=== PATIENT | female | born 1985 | race Caucasian/White ===

== ENCOUNTER 2017-03-18 12:54 | Emergency (ER) | payer BC ==
[2017-03-18 13:08] VITALS: BP 144/73
--- OUTSIDE RECORDS SUMMARY | 2017-03-18 13:21 | XMS REPORT | Continuity of Care Document ---
:1985 Demographics Phone Unavailable Preferred Language Unknown Marital Status Unknown Judaism Affiliation Unknown Race Unknown Ethnic Group Unknown Author Organization [facility] ([facility]) Address [place] [address] Phone [phone] Care Team Providers Name Role Phone Unavailable Primary Care Provider Unavailable Source Comments This disclosure is being made pursuant to the Care Everywhere program, applicable federal and state laws, and may not contain all informaitonavailable regarding this patient.[facility] ([facility]) Active Allergies and Adverse Reactions Not on File Current Medications Not on file Active Problems Not on file Social History Tobacco Use Types Packs/Day Years Used Date Never Assessed Plan of Care Health Maintenance Due Date Last Done Comments Hepatitis B Vaccine (1 of 3 - Primary Series) 1985 Tdap Vaccine 1997 Lipid Disorder Screening 2004 MMR Vaccine 2004 Td Vaccine 2004 Varicella Vaccine (1 of 2 - Adult - No Evidence of 2004 Immunity) Influenza Vaccine: Seasonal (#1) 05/29/2016 Results from Last 3 Months Not on file
[2017-03-18] MEDS ORDERED: METHYLPREDNISOLONE SOD SUCC/PF 40 MG/ML VIAL IM ONE (13:27)
[2017-03-18] MEDS ORDERED: KETOROLAC TROMETHAMINE 60 MG/2 ML VIAL IM ONE ×2 (13:27→13:32)
[2017-03-18] MEDS ORDERED: METHYLPREDNISOLONE SOD SUCC/PF 40 MG/ML VIAL ONE (13:32)
--- NOTE | 2017-03-18 14:23 | ERNOTE ---
Back Pain ER HPI Date of Service: 03/18/17 Presenting Symptoms: other - low back pain with numbness and tingling to bilateral legs Time Seen by Provider: 03/18/17 13:14 Source: patient Exam Limitations: no limitations Immunizations: IMMUNIZATION HX Immunizations Up to Date Yes History of Influenza Vaccine No Allergies/Adverse Reactions: Allergies No Known Allergies Allergy (Verified 03/18/17 13:08) Home Medications: HOME MEDICATIONS Naproxen [Naprosyn] 500 mg PO BID #14 tablet 03/18/17 [Last Taken Unknown] - Pain Score Pain Score #1 Pain Score: 8 Pain Score #2 Pain Score: 2 Narrative: Patient is a 31 year old female who ambulated into ED with complaints of low back pain and numbness and tingling to bilateral legs. Patient states low back pain began 2 years ago and she sought medical care in which she was diagnosed with DJD. Patient denied injury or trauma at that time. States that she sees a chiropractor when she begins to feel pain and that works for relief. States that yesterday morning she began to have bilateral leg cramping and then began to get worse during the night. States this morning she had progressively worsening pain--pain originates L4-L5 area and radiates down bilateral buttocks and lateral areas of outer thighs. States that when she has these flares up she has difficulty controlling her bladder. Has attempted cold and heat therapy and Ibuprofen without relief Date (Duration): 03/17/17 Timing: Reports: constant, getting worse Quality/Severity: Reports: moderate Location of pain: Reports: lower back, radiating to rt thigh/leg, radiating to lf thigh/leg Activities at Onset: Reports: none Recent Injury?: Reports: no Possible Precipitating Factor: Reports: none Modifying Factors - (Improves): Reports: nothing Modifying Factors - (Worsens): Reports: movement to right, movement to left, movement flexion, cough/deep breaths Associated Symptoms: Reports: difficulty walking, numbess/weakness in legs, other - difficulty controlling bladder Prior Treament: Reports: similar symptoms before Review of Systems - Review of Systems Constitutional: Present: no symptoms reported. Absent: recent illness, fever, chills EYE: Present: no symptoms reported ENT: Present: no symptoms reported Respiratory: Present: no symptoms reported. Absent: shortness of breath, cough Cardiology: Present: no symptoms reported Gastrointestinal/Abdominal: Present: no symptoms reported. Absent: nausea, vomiting, diarrhea Genitourinary: Present: other - difficulty with bladder control Musculoskeletal: Present: back pain - L4-L5 area Skin: Present: no symptoms reported Neurological: Present: numbness, tingling Endocrine: Present: no symptoms reported Hematologic/Lymphatic: Present: no symptoms reported Psych: Present: no symptoms reported - Patient's Past Medical History Patient History - Medical: Anxiety, Depression, Obesity Patient History - Cardiac/Respiratory: Hypertension Patient History - Cancer: No Hx of Cancer Patient History - Surgical Procedures: No surgical history LMP (females 10-50): now - Social History Living Situations: home Psych History: Hx of Anxiety, Hx of Depression Smoking Status: Never smoker Do you dip or chew tobacco: No Alcohol Use: rarely Drug Use: none - Immunizations Immunizations Up to Date: Yes History of Influenza Vaccine: No Physical Exam - Physical Exam General Appearance: Present: wd/wn, alert, no apparent distress, obese, cheerful Eye Exam: Normal inspection: bilateral, PERRL: bilateral Ears, Nose, Throat: Absent: nasal congestion, sinus pain/drainage, pharyngeal erythema, pharyngeal swelling, tonsillar exudate, tonsillar swelling, dry mucous membranes Neck: Present: normal inspection, nontender, supple, full range of motion. Absent: lymphadenopathy (R), lymphadenopathy (L) Respiratory: Present: no respiratory distress, normal breath sounds, no accessory muscle use, chest nontender, lungs clear. Absent: chest tenderness, accessory muscle use Cardiovascular/Chest: Present: regular rate, rhythm, no murmur, normal peripheral pulses Peripheral Pulses: N=norm/S=strong/W=weak/B=bound/A=absent: Radial (R): Normal, Radial (L): Normal Gastrointestinal/Abdominal: Present: normal bowel sounds, nontender, nondistended, soft, no organomegaly Rectal Exam: Present: deferred Back Exam: Present: normal inspection, normal range of motion, vertebral tenderness, decreased range of motion. Absent: no CVA tenderness, CVA tenderness (R), CVA tenderness (L) Extremity Exam: Present: normal inspection, non-tender, normal range of motion, no edema Neurological Exam: Present: alert, oriented, normal mood/affect, no motor/ sensory deficits Skin Exam: Present: normal color, warm/dry Lymphatic Exam: Present: no adenopathy ED Progress - Vital Signs Patient's Vital Signs:: I have reviewed the patient's vital signs. Vital Signs: Vital Signs 03/18/17 13:02 Temperature 36.1 C L Pulse Rate 81 Respiratory 16 Rate Blood Pressure 144/73 O2 Sat by Pulse 97 Oximetry - Progress/Reassessment Chief Complaint: Back Pain Progress Note-Subjective: 03/18/17 14:22 Patient states she has felt relief from injections. States pain is lessening Departure Clinical Impression: Back pain at L4-L5 level, Sciatic leg pain Clinical Impression: (Ruled Out): Sciatic nerve pain - Departure Disposition: Home self-care Condition: Good Instructions: Back Pain, Adult, Sciatica, [id number]-pf-Vsub Additional Instructions: Rest as much as possible. Make chiropractor appointment as soon as possible since that help with pain relief. Take medications as directed with food. Referrals: Afsaneh Costello, ASSOCIATE PRO[employer] MANAGER [Primary Care Provider] - Prescriptions: Naproxen [Naprosyn] 500 mg PO BID #14 tablet
== END 2017-03-18 14:10 | disposition home or self-care (01) ==
LOC: ER 12:54
DX: M54.42 Lumbago with sciatica, left side (principal); M54.41 Lumbago with sciatica, right side

== ENCOUNTER 2018-05-24 15:42 | Inpatient (IN) ==
[2018-05-25] MEDS ORDERED: ONDANSETRON HCL/PF 2 MG/ML VIAL IV PRN (12:10)
[2018-05-25] MEDS ORDERED: NALBUPHINE HCL 10 MG/ML AMPUL IV PRN (12:10)
[2018-05-25] MEDS ORDERED: PROMETHAZINE HCL 12.5 MG in DEXTROSE 5 % IN WATER 50 ML IV PRN ×2 (12:10)
[2018-05-25] MEDS ORDERED: OXYTOCIN/DEXTROSE 5%-WATER 30 UNITS/500 ML BAG IV ONE (12:10)
[2018-05-25] MEDS ORDERED: PENICILLIN G POTASSIUM 5 MILLIONUNT in DEXTROSE 5 % IN WATER 100 ML IV ONE ×2 (14:25)
[2018-05-25] MEDS: RINGER'S SOLUTION,LACTATED 1,000 ML IV PRN (14:34)
[2018-05-25] MEDS: MISOPROSTOL 100 MCG TABLET VG SCH ×2 (14:35→18:44)
[2018-05-25] MEDS: PENICILLIN G POTASSIUM 2.5 MILLIONUNT in DEXTROSE 5 % IN WATER 100 ML IV SCH ×4 (18:40→22:29)
[2018-05-26] MEDS: MISOPROSTOL 100 MCG TABLET VG SCH (00:48)
[2018-05-26] MEDS: PENICILLIN G POTASSIUM 2.5 MILLIONUNT in DEXTROSE 5 % IN WATER 100 ML IV SCH ×4 (02:33→07:19)
[2018-05-26] MEDS: RINGER'S SOLUTION,LACTATED 1,000 ML IV PRN ×2 (03:53→07:43)
[2018-05-26] MEDS ORDERED: ONDANSETRON HCL/PF 2 MG/ML VIAL IV PRN ×3 (06:12→11:27)
[2018-05-26] MEDS ORDERED: BUPIVACAINE HCL/0.9 % NACL/PF 250 ML EP PRN (06:12)
[2018-05-26] MEDS ORDERED: NALOXONE HCL 1 MG/1 ML SYRG IV PRN ×2 (06:12→11:27)
[2018-05-26] MEDS ORDERED: fentaNYL CITRATE/PF 50 MCG/ML AMPUL IT SCH (06:15)
--- NOTE | 2018-05-26 06:49 | ANES ---
Anesthesia Pre Procedure Eval Vitals/Labs: Last Vital Signs Temp 36.7 C 05/26/18 06:19 Pulse 75 05/26/18 06:19 Resp 18 05/26/18 06:19 BP 132/78 05/26/18 06:19 Pulse Ox 98 05/26/18 06:19 HOME MEDICATIONS vitamin,calcium,vsrrqklb-zcud-thutb acid tablet 1 tab PO DAILY [Last Taken Unknown] ranitidine 150 mg tablet 150 mg PO 04/28/18 [Last Taken Unknown] breast pump See Dose Instructions .ROUTE .MEDSUPPLY #1 ea 04/29/18 [Last Taken Unknown] Insulin NPH Human Recom [Novolin N] 34 units SC [facility] 05/25/18 [Last Taken Unknown ] Insulin NPH Human Recom [Novolin N] 48 units SC 05/25/18 [Last Taken Unknown] Insulin Regular, Human [Novolin R] 6 units SC [facility] 05/25/18 [Last Taken 05/25/18 08:00] Insulin Regular, Human [Novolin R] 8 units SC 05/25/18 [Last Taken Unknown] Allergies/Adverse Reactions: Allergies Allergy/AdvReac Type Severity Reaction Status Date / Time No Known Allergies Allergy Verified 05/23/18 14:56 - Planned Procedure Planned Procedure: MEDICAL INDUCTION FOR GESTATIONAL DIABETES Medication List Reviewed:: Yes Allergies Verified: Yes Medical History (Last Reviewed 05/26/18 @ 06:26 by Alf Flood CRNA) Diabetes mellitus type II, controlled (Acute) BMI 40.0-44.9, adult (Acute) BMI 50.0-59.9, adult Gestational diabetes Morbid Obesity BMI>25 Stress incontinence in female Urge incontinence Urinary urgency Anemia Anxiety Asthma Small bowel problem Surgical History (Last Reviewed 05/26/18 @ 06:27 by Alf Flood CRNA) History of adenoidectomy History of nasal surgery History of tonsillectomy Family History (Last Reviewed 05/26/18 @ 06:27 by Alf Flood CRNA) Grandmother Hypothyroidism Hypercholesterolemia Mother Diabetes Hypertension Hypothyroidism - Family Anesthesia History Family History:: no untoward family reactions to anesthesia, no familial bleeding tendencies, no family history of clotting disorders, no family history of premature - Airway/Neck/Teeth Within Normal Limits:: Yes Teeth Condition: Intact Mallampatti Score: 2 Thyromental (T-M) distance: > 6 cm Mandibulo Hyoid distance: > 3 cm - Respiratory Respiratory: chest non-tender, lungs clear, normal breath sounds Smoking Status: Never smoker Sleep Apnea currently treated: No Sleep Apnea by current assessment: No - Cardiovascular Tolerates Activity: Fair - Anesthesia Assessment and Plan ASA Class: PS, II, E Anesthesia Type Plan: Epidural Planned difficult intubation/equipment available: No
--- NOTE | 2018-05-26 06:56 | ANES ---
Anesthesia Procedure Note Procedure Note: ANESTHESIA PROCEDURE NOTE Date of Procedure: 05/26/2018 Time of procedure: 6:30 AM. Performed by: KISHORE Joseph CRNA, MSN Inspector Type: Trinidad Burton RN. Preprocedure diagnosis: Active labor, labor pain. Post procedure diagnosis: Same. Procedure:Epidural for labor analgesia L3 4. Indications: Labor pain. Findings: See below. Details of the procedure: The patient was placed on the side of the bed in sitting positionand prepped with DuraPrep then draped in a sterile fashion. Lidocaine 1% was infiltrated to the skin and subcutaneous tissues at the level of the L34 interspace. An 18-gauge Touhy needle was used to approach the epidural space with loss of resistance technique. Once loss of resistance was achieved a 27-gauge spinal needle was passed through the epidural needle and CSF was contacted. After CSF returned, 20 mcg of fentanyl was injected in the spinal needle was removed the epidural catheter was then threaded approximately 4 cm in the epidural needle was removed. The catheter was taped in place and after careful aspiration 3 mL of 1.5% lidocaine with 1-200,000 epinephrine was injected without change in maternal heart rate or sensorium. . EBL: Minimal. Fluids: N/A. Specimen: N/A. Post procedure condition: The patient tolerated the procedure well with. Good Relief. No complications were noted. Thank you for this consultation. Alf Flood CRNA, ARNP, MSN
--- NOTE | 2018-05-26 07:16 | ANES ---
Post Anesthesia Assessment - Vital Signs Vitals: Last Vital Signs Temp 36.7 C 05/26/18 06:19 Pulse 75 05/26/18 06:19 Resp 18 05/26/18 06:19 BP 132/78 05/26/18 06:19 Pulse Ox 98 05/26/18 06:19 Airway Patency: Normal - Mental Status Level Of Consciousness: Awake, Alert, Appropriate - Pain Level Pain Score: 0 - N/V Assessment Nausea/Vomiting Presence: None Dehydration:: No
--- NOTE | 2018-05-26 09:59 | PN ---
Progess Note - Interim Date: 05/26/18 Time: 09:56 Narrative: 05/26/18 09:56 IUPC placed. VE 4cm and I felt buttocks. Bedside ultrasound performed which was consistent with breech presentation. The head was visualized via ultrasound in the LUQ. Therefore, it was explained to the patient and her that delivery via was recommended due to breech presentation. All risks, benefits, and alternatives of the procedure were explained to the patient and she consented to the procedure.
--- NOTE | 2018-05-26 10:11 | ANES ---
Anesthesia Pre Procedure Eval Vitals/Labs: Last Vital Signs Temp 36.7 C 05/26/18 06:19 Pulse 75 05/26/18 06:19 Resp 18 05/26/18 06:19 BP 132/78 05/26/18 06:19 Pulse Ox 98 05/26/18 06:19 HOME MEDICATIONS vitamin,calcium,erduxxtu-atrc-miufx acid tablet 1 tab PO DAILY [Last Taken Unknown] ranitidine 150 mg tablet 150 mg PO 04/28/18 [Last Taken Unknown] breast pump See Dose Instructions .ROUTE .MEDSUPPLY #1 ea 04/29/18 [Last Taken Unknown] Insulin NPH Human Recom [Novolin N] 34 units SC [facility] 05/25/18 [Last Taken Unknown ] Insulin NPH Human Recom [Novolin N] 48 units SC 05/25/18 [Last Taken Unknown] Insulin Regular, Human [Novolin R] 6 units SC [facility] 05/25/18 [Last Taken 05/25/18 08:00] Insulin Regular, Human [Novolin R] 8 units SC 05/25/18 [Last Taken Unknown] Allergies/Adverse Reactions: Allergies Allergy/AdvReac Type Severity Reaction Status Date / Time No Known Allergies Allergy Verified 05/23/18 14:56 - Planned Procedure Planned Procedure: MEDICAL INDUCTION FOR GESTATIONAL DIABETES Medication List Reviewed:: Yes Allergies Verified: Yes Medical History (Last Reviewed 05/26/18 @ 10:09 by Alf Flood CRNA) Diabetes mellitus type II, controlled (Acute) BMI 40.0-44.9, adult (Acute) BMI 50.0-59.9, adult Gestational diabetes Morbid Obesity BMI>25 Stress incontinence in female Urge incontinence Urinary urgency Anemia Anxiety Asthma Small bowel problem Surgical History (Last Reviewed 05/26/18 @ 10:09 by Alf Flood CRNA) History of adenoidectomy History of nasal surgery History of tonsillectomy Family History (Last Reviewed 05/26/18 @ 10:09 by Alf Flood CRNA) Grandmother Hypothyroidism Hypercholesterolemia Mother Diabetes Hypertension Hypothyroidism - Family Anesthesia History Family History:: no untoward family reactions to anesthesia, no familial bleeding tendencies, no family history of clotting disorders, no family history of premature - Airway/Neck/Teeth Within Normal Limits:: Yes Teeth Condition: Intact Neck Exam: non-tender, full range of motion Mallampatti Score: 2 Thyromental (T-M) distance: > 6 cm Mandibulo Hyoid distance: > 3 cm - Respiratory Respiratory: chest non-tender, lungs clear, normal breath sounds Smoking Status: Never smoker Sleep Apnea currently treated: No Sleep Apnea by current assessment: No - Cardiovascular Patient History - Cardiac/Respiratory: No pertinent hx Tolerates Activity: Fair Heart Sounds: S1 & S2, Regular - Anesthesia Assessment and Plan ASA Class: PS, II, E Anesthesia Type Plan: Spinal, Epidural - Duramorph for post op pain relief
[2018-05-26] MEDS ORDERED: ceFAZolin SODIUM 3 GM in DEXTROSE 5 % IN WATER 100 ML IV PRN ×2 (10:15)
[2018-05-26] MEDS ORDERED: OXYTOCIN 20 UNITS in RINGER'S SOLUTION,LACTATED 1,000 ML IV ONE ×2 (10:15→11:06)
[2018-05-26] MEDS ORDERED: SENNOSIDES 8.6 MG TABLET PO PRN (11:06)
[2018-05-26] MEDS ORDERED: PROMETHAZINE HCL 12.5 MG in DEXTROSE 5 % IN WATER 50 ML IV PRN ×2 (11:06)
[2018-05-26] MEDS ORDERED: RINGER'S SOLUTION,LACTATED 1,000 ML IV ONE (11:06)
[2018-05-26] MEDS ORDERED: diphenhydrAMINE HCL 25 MG CAPSULE PO PRN (11:06)
[2018-05-26] MEDS ORDERED: SIMETHICONE 80 MG TAB.CHEW PO PRN (11:06)
[2018-05-26] MEDS ORDERED: oxyCODONE HCL/ACETAMINOPHEN 1 TAB TABLET PO PRN (11:06)
[2018-05-26] MEDS ORDERED: BISACODYL 10 MG SUPP.RECT RC PRN (11:06)
--- NOTE | 2018-05-26 11:14 | OR ---
Operative Report - Dictated Report Narrative: Pre-op diagnosis: breech presentation, meconium stained amniotic fluid Post-op diagnosis: complete breech presentation, meconium stained amniotic fluid Indications for the procedure: The patient is a 32 yo who presented to labor and delivery for an induction of labor due to pregestational diabetes. She received misoprostol for ripening. She then spontaneously ruptured and pitocin was started. I placed and IUPC and her vaginal exam findings were suspicious for breech presentation.
--- NOTE | 2018-05-26 11:21 | ANES ---
Post Anesthesia Discharge - Transfer of Care Transfer of Care handoff given to nurse: Yes - Discharge from PACU Discharge from PACU when meets criteria: Yes - Comfortable in PACU
--- NOTE | 2018-05-26 11:47 | ANES ---
Post Anesthesia Assessment - Vital Signs Vitals: Last Vital Signs Temp 36.5 C 05/26/18 11:20 Pulse 67 05/26/18 11:30 Resp 16 05/26/18 11:35 BP 127/47 05/26/18 11:35 Pulse Ox 100 05/26/18 11:35 Airway Patency: Normal - Mental Status Level Of Consciousness: Awake, Alert, Appropriate - Pain Level Pain Score: 0 - N/V Assessment Nausea/Vomiting Presence: None Dehydration:: No - Additional Notes Comments:: Comfortable on discharge to [facility].
[2018-05-26] MEDS: oxyCODONE HCL/ACETAMINOPHEN 1 TAB TABLET PO PRN (14:38)
[2018-05-26] MEDS: IBUPROFEN 800 MG TABLET PO PRN ×2 (14:39→20:43)
[2018-05-26] MEDS: DOCUSATE SODIUM 100 MG CAPSULE PO SCH (21:19)
[2018-05-27] MEDS: ACETAMINOPHEN 325 MG TABLET PO PRN ×2 (02:16→18:21)
[2018-05-27] MEDS: IBUPROFEN 800 MG TABLET PO PRN ×3 (04:57→19:38)
[2018-05-27 05:47] LABS: Hematocrit 30.5 % (37.0-47.0); Hemoglobin 9.8 gm/dL (12.5-16.0); Mean Corpuscular Hgb Conc 32.1 g/dl (32-36); Mean Platelet Volume 10.2 fl (8-12.5); Neutrophil % 74.5 % (42-75.0); Platelet Count 221 K/mm3 (150-450); Red Blood Count 3.63 M/mm3 (4.2-5.4); Red Cell Distribution Width 14.4 % (11.5-14.0); White Blood Count 14.7 K/mm3 (4.0-10.5)
--- NOTE | 2018-05-27 08:17 | ANES ---
Post Anesthesia Assessment - Vital Signs Vitals: Last Vital Signs Temp 35.2 C L 05/27/18 07:00 Pulse 74 05/27/18 07:00 Resp 18 05/27/18 07:00 BP 131/60 05/27/18 07:00 Pulse Ox 96 05/27/18 07:00 Airway Patency: Normal - Mental Status Level Of Consciousness: Awake, Alert, Appropriate - Pain Level Pain Score: 0 - N/V Assessment Nausea/Vomiting Presence: None - Had been nauseated once yesterday, no issues today. Dehydration:: No
[2018-05-27] MEDS: KETOROLAC TROMETHAMINE 30 MG/ML VIAL IV SCH ×2 (09:16→09:17)
[2018-05-27] MEDS: DOCUSATE SODIUM 100 MG CAPSULE PO SCH ×2 (10:17→21:15)
--- NOTE | 2018-05-27 11:26 | PN ---
Subjective - Date and Time Seen Date: 05/27/18 Time: 09:00 Objective - Review of Systems Generalized/Overall Review: Reports: No Symptoms Reported EENTM: Reports: No Symptoms Reported Respiratory: Reports: No Symptoms Reported Cardiac: Reports: No Symptoms Reported Abdominal: Reports: No Symptoms Reported Genitourinary Symptoms: Reports: No Symptoms Reported Musculoskeletal Complaints: Reports: No Symptoms Reported Neurological: Reports: No Symptoms Reported Skin: Reports: No Symptoms Reported Endocrine: Reports: No Symptoms Reported - Vitals Vitals: Last Vital Signs Temp 35.2 C L 05/27/18 07:00 Pulse 74 05/27/18 07:00 Resp 18 05/27/18 07:00 BP 131/60 05/27/18 07:00 Pulse Ox 96 05/27/18 07:00 - Abnormal Lab Findings Abnormal Lab Findings: Abnormal Lab Results 05/27/18 Range/Units 06:00 WBC 14.7 H (4.0-10.5) K/mm3 RBC 3.63 L (4.2-5.4) M/mm3 Hgb 9.8 L (12.5-16.0) gm/dL Hct 30.5 L (37.0-47.0) % RDW 14.4 H (11.5-14.0) % Immature Gran % (Auto) 0.60 H (0.001-0.429) % Immature Gran # (Auto) 0.09 H (0.000-0.0310) K/mm3 Lymphocytes % 16.9 L (20-51) % Neutrophils # 11.0 H (1.3-6.0) K/mm3 - Exam Constitutional: Present: Alert, Oriented x3, Cooperative, No distress Breasts: Present: Exam deferred Respiratory: Present: chest non-tender, lungs clear Cardiovascular/Chest: Present: normal peripheral pulses Abdomen: Present: Normal bowel sounds Extremity: Present: non-tender, normal inspection, no calf tenderness Skin Exam: Present: normal color, warm/dry, no cyanosis Appearance: Present: appropriate appearance Eye contact: Present: cooperative Thoughts: Present: normal thought pattern Cauti Physician Documentation - Urinary Catheter Management Urethral (Miles) Urethral Indwelling: No Date of Insertion: 05/26/18 Time of Insertion: 07: Date of Removal: 05/27/18 Time of Removal: 05:30 Assessment/Plan - Problems/Diagnosis (1) delivery delivered Problem: Acute Narrative: POD 1 s/p delivery Doing well Incision well-approximated H/H appropriate
[2018-05-28] MEDS: oxyCODONE HCL/ACETAMINOPHEN 1 TAB TABLET PO PRN ×6 (00:52→20:47)
[2018-05-28] MEDS: IBUPROFEN 800 MG TABLET PO PRN ×3 (05:24→22:52)
[2018-05-28] MEDS: DOCUSATE SODIUM 100 MG CAPSULE PO SCH ×2 (09:07→20:46)
--- NOTE | 2018-05-28 12:37 | PN ---
Subjective - Date and Time Seen Date: 05/28/18 Time: 12:35 Objective - Review of Systems Generalized/Overall Review: Reports: No Symptoms Reported EENTM: Reports: No Symptoms Reported Respiratory: Reports: No Symptoms Reported Cardiac: Reports: No Symptoms Reported Abdominal: Reports: No Symptoms Reported Genitourinary Symptoms: Reports: No Symptoms Reported Musculoskeletal Complaints: Reports: No Symptoms Reported Neurological: Reports: No Symptoms Reported Skin: Reports: No Symptoms Reported Endocrine: Reports: No Symptoms Reported - Vitals Vitals: Last Vital Signs Temp 36.2 C 05/28/18 07:38 Pulse 78 05/28/18 07:38 Resp 18 05/28/18 07:38 BP 132/60 05/28/18 07:38 Pulse Ox 98 05/28/18 07:38 - Exam Constitutional: Present: Alert, Oriented x3, Cooperative, No distress Breasts: Present: Exam deferred Respiratory: Present: chest non-tender, lungs clear Cardiovascular/Chest: Present: normal peripheral pulses Abdomen: Present: Normal bowel sounds Extremity: Present: normal range of motion, non-tender Skin Exam: Present: normal color, warm/dry, no cyanosis Appearance: Present: appropriate appearance Eye contact: Present: cooperative, good eye contact Thoughts: Present: normal thought pattern Cauti Physician Documentation - Urinary Catheter Management Urethral (Miles) Urethral Indwelling: No Date of Insertion: 05/26/18 Time of Insertion: 07:30 Date of Removal: 05/27/18 Time of Removal: 05:30 Assessment/Plan Plan Narrative: Chris is doing well. No complaints Tolerating metformin. FBS was 90 Discharge tomorrow - Problems/Diagnosis (1) delivery delivered Problem: Acute
[2018-05-29] MEDS: oxyCODONE HCL/ACETAMINOPHEN 1 TAB TABLET PO PRN ×2 (01:28→06:57)
[2018-05-29] MEDS: IBUPROFEN 800 MG TABLET PO PRN (06:57)
[2018-05-29] MEDS: DOCUSATE SODIUM 100 MG CAPSULE PO SCH ×2 (06:57→09:36)
[2018-05-29 07:14] VITALS: BP 131/60
--- NOTE | 2018-05-29 09:16 | PN ---
Subjective - Date and Time Seen Date: 05/29/18 Time: 09:14 Objective - Review of Systems Generalized/Overall Review: Reports: No Symptoms Reported EENTM: Reports: No Symptoms Reported Respiratory: Reports: No Symptoms Reported Abdominal: Reports: No Symptoms Reported Genitourinary Symptoms: Reports: No Symptoms Reported Musculoskeletal Complaints: Reports: No Symptoms Reported Neurological: Reports: No Symptoms Reported Skin: Reports: No Symptoms Reported Endocrine: Reports: No Symptoms Reported - Vitals Vitals: Last Vital Signs Temp 36.4 C 05/29/18 07:11 Pulse 88 05/29/18 07:11 Resp 18 05/29/18 07:11 BP 131/60 05/29/18 07:11 Pulse Ox 98 05/29/18 07:11 - Exam Constitutional: Present: Alert, Oriented x3, Cooperative, No distress Breasts: Present: Exam deferred Extremity: Present: non-tender Skin Exam: Present: normal color, warm/dry, no cyanosis Appearance: Present: appropriate appearance Eye contact: Present: cooperative Thoughts: Present: normal thought pattern - Discharge today. Follow-up in 2 weeks for incision check and in 6 weeks for PP visit Cauti Physician Documentation - Urinary Catheter Management Urethral (Miles) Urethral Indwelling: No Date of Insertion: 05/26/18 Time of Insertion: 07:30 Date of Removal: 05/27/18 Time of Removal: 05:30 Assessment/Plan - Problems/Diagnosis (1) delivery delivered Problem: Acute
--- NOTE | 2018-05-29 10:46 | DS ---
(1) delivery delivered Problem: Acute Description of Stay: Pt had a delivery for breech presentation. She is discharged today on POD3. Her pain is well-controlled. Breast feeding is going well. Procedures Performed: see notes below - delivery Results and Findings: Lab Pending Results 05/25/18 12:47: Blood Type O Positive, Antibody Screen Negative 05/27/18 06:00: WBC 14.7 H, RBC 3.63 L, Hgb 9.8 L, Hct 30.5 L, MCV 84.0, MCH 27.0, MCHC 32.1, RDW 14.4 H, Plt Count 221, MPV 10.2, Immature Gran % (Auto) 0.60 H, Immature Gran # (Auto) 0.09 H, Neutrophils % 74.5, Lymphocytes % 16.9 L , Monocytes % 6.4, Eosinophils % 1.4, Basophils % 0.2, Nucleated RBC % 0.0, Neutrophils # 11.0 H, Lymphocytes # 2.49, Monocytes # 0.9, Eosinophils # 0.2, Absolute Basophils 0.0 Discharge Location: Home Disposition: Home self-care Condition: Good Discharge Activity: Activity as tolerated Discharge Diet: Other - Diabetic Problem Oriented Discharge Instructions to Patient/Family: [facility], Home Care Instructions for Mom Additional Patient Instructions (free text): Chris pink follow up visit is June 13 [address] Orozco. Cisco follow up visit is Nurse Sandeep every 2 to 3 hours and on demand. Rest when he rest. Always lay him on his back to sleep, in own crib with no extra pillows, blankets or stuffed animals. weight 9 lb 9.7oz Discharge weight - 8 lb 13.9 oz Blood type - O+ Congratulations on your new addition. If you have any questions or concerns please don't hesitate to call. [facility] - [phone], [facility] - [phone] , Place - [phone] Prescriptions (Any new or edited meds): oxyCODONE HCL/ACETAMINOPHEN [Percocet 5 MG/325 MG] 1 - 2 tab PO Q4H PRN #15 tab PRN Reason: Pain Complete Home Medications List: Complete Home Medication List: vitamin,calcium,lnccmfnz-unsk-cknzf acid tablet 1 tab PO DAILY ranitidine 150 mg tablet 150 mg PO 04/28/18 breast pump See Dose Instructions .ROUTE .MEDSUPPLY #1 ea 04/29/18 Insulin NPH Human Recom [Novolin N] 34 units SC [facility] 05/25/18 Insulin NPH Human Recom [Novolin N] 48 units SC 05/25/18 Insulin Regular, Human [Novolin R] 6 units SC [facility] 05/25/18 Insulin Regular, Human [Novolin R] 8 units SC 05/25/18 oxyCODONE HCL/ACETAMINOPHEN [Percocet 5 MG/325 MG] 1 - 2 tab PO Q4H PRN #15 tab 05/29/18
--- NOTE | 2018-05-29 11:20 | DS ---
(1) delivery delivered Problem: Acute Procedures Performed: see notes below Results and Findings: Lab Pending Results 05/25/18 12:47: Blood Type O Positive, Antibody Screen Negative 05/27/18 06:00: WBC 14.7 H, RBC 3.63 L, Hgb 9.8 L, Hct 30.5 L, MCV 84.0, MCH 27.0, MCHC 32.1, RDW 14.4 H, Plt Count 221, MPV 10.2, Immature Gran % (Auto) 0.60 H, Immature Gran # (Auto) 0.09 H, Neutrophils % 74.5, Lymphocytes % 16.9 L , Monocytes % 6.4, Eosinophils % 1.4, Basophils % 0.2, Nucleated RBC % 0.0, Neutrophils # 11.0 H, Lymphocytes # 2.49, Monocytes # 0.9, Eosinophils # 0.2, Absolute Basophils 0.0 Discharge Location: Home Disposition: Home self-care Condition: Good Discharge Activity: Activity as tolerated Problem Oriented Discharge Instructions to Patient/Family: [facility], Home Care Instructions for Mom Additional Patient Instructions (free text): Chris pink follow up visit is June 13 at [address] Orozco. Cisco follow up visit is SundayMay 31, at [address] Cash. Nurse Sandeep every 2 to 3 hours and on demand. Rest when he rest. Always lay him on his back to sleep, in own crib with no extra pillows, blankets or stuffed animals. weight 9 lb 9.7oz Discharge weight - 8 lb 13.9 oz Blood type - O+ Congratulations on your new addition. If you have any questions or concerns please don't hesitate to call. [facility] - [phone], [facility] [phone] , Place - [phone] Prescriptions (Any new or edited meds): oxyCODONE HCL/ACETAMINOPHEN [Percocet 5 MG/325 MG] 1 - 2 tab PO Q4H PRN #15 tab PRN Reason: Pain Complete Home Medications List: Complete Home Medication List: vitamin,calcium,gjsvyagp-xamu-hkanm acid tablet 1 tab PO DAILY ranitidine 150 mg tablet 150 mg PO HS 04/28/18 breast pump See Dose Instructions .ROUTE .MEDSUPPLY #1 ea 04/29/18 Insulin NPH Human Recom [Novolin N] 34 units SC [facility] 05/25/18 Insulin NPH Human Recom [Novolin N] 48 units SC 05/25/18 Insulin Regular, Human [Novolin R] 6 units SC [facility] 05/25/18 Insulin Regular, Human [Novolin R] 8 units SC 05/25/18 oxyCODONE HCL/ACETAMINOPHEN [Percocet 5 MG/325 MG] 1 - 2 tab PO Q4H PRN #15 tab 05/29/18
== END 2018-05-29 12:20 | disposition home or self-care (01) | DRG 765 ==
LOC: OB 05-25 12:04
PROVIDERS: ADMIT Obstetrics & Gynecology; ATTEND Obstetrics & Gynecology
CPT/HCPCS: 36415; 59025; 85025; 86850; 86900; J2405

== ENCOUNTER 2021-02-09 12:21 | Inpatient (IN) ==
[2021-02-09] MEDS ORDERED: ALBUTEROL SULFATE 60 PUFF INHALER IH ONE (12:46)
[2021-02-09 13:06] LABS: Hematocrit 40.5 % (37.0-47.0); Hemoglobin 12.4 gm/dL (12.5-16.0); Mean Cell Volume 80.4 fl (78-100); Mean Corpuscular Hemoglobin 24.6 pg (27-31); Mean Corpuscular Hgb Conc 30.6 g/dl (32-36); Mean Platelet Volume 9.1 fl (8-12.5); Neutrophil # 4.1 K/mm3 (1.3-6.0); Neutrophil % 68.5 % (42-75.0); Platelet Count 268 K/mm3 (150-450); Red Blood Count 5.04 M/mm3 (4.2-5.4); Red Cell Distribution Width 14.8 % (11.5-14.0)
--- NOTE | 2021-02-09 13:15 | ERNOTE ---
Date of Service: 02/09/21 Time Seen by Provider: 02/09/21 12:37 Stated Complaint: covid positive Presenting Symptoms:: other - dyspnea Source: patient Exam Limitations: no limitations Immunizations: IMMUNIZATION HX Immunizations Up to Date Yes History of Influenza Vaccine No Allergies/Adverse Reactions: Allergies No Known Allergies Allergy (Verified 02/09/21 16:38) Home Medications: HOME MEDICATIONS bupropion HCl 100 mg tablet,12 hr sustained-release 100 mg PO DAILY #90 ea 09/15/20 [Last Taken Unknown] lisinopril 5 mg tablet 5 mg PO DAILY #90 tab 12/08/20 [Last Taken Unknown] Albuterol Sulfate [Proair Respiclick] 1 puff IH Q4H PRN 02/09/21 [Last Taken U nknown] Celecoxib [Celebrex] 100 mg PO BID 02/09/21 [Last Taken Unknown] Gabapentin [Neurontin] 300 mg PO TID 02/09/21 [Last Taken Unknown] Nystatin 5 ml PO QID 02/09/21 [Last Taken Unknown] glipiZIDE [Glipizide] 5 mg PO BID 02/09/21 [Last Taken Unknown] metFORMIN HCL [Glucophage Xr] 1,000 mg PO BID 02/09/21 [Last Taken Unknown] - History of Present Ilness Narrative: The patient is a 35 year old female who presents via POV for dyspnea which has been present since Sunday with worsening symptoms today. There are associated symptoms of fever, fatigue, decreased appetite and cough. The patient reports generalized body aches, 6/10. There are no alleviating factors. There are aggravating factors of minimal activity. Previous treatments have included: albuterol 1 puff without improvement and Mucinex with minimal improvement. The past medical history includes: asthma, anxiety, anemia and DM. The social history is negative. The patient has had no known ill contacts. Patient reports developing symptoms on Sunday and then received positive COVID testing results yesterday. Patient states she had contacted the office to discuss monitoring due to oxygen being 90% RA at rest and decreasing to 85% RA with minimal activity and that is when she received her positive results and they instructed her to present to ER for further evaluation. Patient has not received vaccination. Review of Systems - Review of Systems Constitutional: Present: fever, chills, weakness, fatigue EYE: Present: no symptoms reported ENT: Present: nose congestion, nasal drainage. Absent: ear pain Respiratory: Present: shortness of breath, cough Cardiology: Present: chest pain Gastrointestinal/Abdominal: Present: nausea, eating less, drinking less. Absent: vomiting, diarrhea Genitourinary: Present: no symptoms reported. Absent: dysuria, decreased urinary output Musculoskeletal: Present: no symptoms reported Skin: Present: no symptoms reported. Absent: rash Neurological: Present: dizziness/light-headedness Medical History (Last Reviewed 02/09/21 @ 12:51 by BELIA Young) Influenza vaccination declined (Acute) Onset Date: 02/12/19 Type 2 diabetes mellitus (Acute) Continue metformin Check HbA1c today Routine Follow-Up (Acute) Pap collected today Micronor for contraception. Pt to call back when she has finished . I recommend a progesterone method since the patient is diabetic. GDM, class A2 (Acute) delivery delivered (Acute) Diabetes mellitus type II, controlled (Acute) BMI 40.0-44.9, adult (Acute) 10/09/17 Sciatica (Acute) Back pain at L4-L5 level (Acute) Sciatic leg pain (Acute) BMI 50.0-59.9, adult 04/03/17 Gestational diabetes 2012 Morbid Obesity BMI>25 05/22/13 Stress incontinence in female 05/22/13 Urge incontinence 05/22/13 Urinary urgency 08/19/14 Anemia 2012-w/ Anxiety Asthma As a child. No hospitalizations. Small bowel problem Some type of bowel disorder as a child/pt unsure exactly what. States it caused her to have difficulty with bowel movements. No surgical intervention. 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 Highest level of school completed/degree received: some college, no degree Service: No Tobacco: Smoking Status: Never smoker second hand exposure: No Alcohol: alcohol intake: former Substance Use: substance use type: does not use Dietary Habits: caffeine: Yes Exercise: Physical activity functional status: normal ROM and activity Physical Exam - Physical Exam General Appearance: Present: wd/wn, alert, moderate distress Head Exam: Present: normal inspection, no evidence of injury Eye Exam: Normal inspection: bilateral Ears, Nose, Throat: Present: dry mucous membranes Neck: Present: normal inspection Respiratory: Present: no respiratory distress, no accessory muscle use, decreased breath sounds, wheezing Cardiovascular/Chest: Present: no murmur, tachycardia Extremity Exam: Present: no edema Neurological Exam: Present: alert, oriented, normal mood/affect, no motor/sensory deficits Skin Exam: Present: normal color, warm/dry Progress - Date and Time Seen: Date and Time: 02/09/21 13:34 Patient following Ventolin has pulse ox of 87% RA. Patient placed on oxygen for supplement per NH. Will discuss case with for admission due to oxygen needs, will initiate steroid treatment. Will also review with to proceed with CTA chest due to slight deviation from normal to ddimer with associated symptoms, likely positive due to COVID. 02/09/21 13:52 Message left with for admission. 02/09/21 14:31 Results of imaging and labs discussed with , requests to proceed with CTA chest due to ddimer elevation. Patient informed of plan of care for testing. 02/09/21 Results of CTA reviewed with . Joint discussion of care reviewed and does not wish to proceed with antibiotics at this time which I feel is appropriate given that patient's WBC is normal and likely viral etiology due to recent positive COVID. Discussion of plan of care was reviewed with patient and verbalizes understanding. - Results and Orders Patient's Lab Results:: I have reviewed the patient's lab results. - Vital Signs Patient's Vital Signs:: I have reviewed the patient's vital signs. Vital Signs: Vital Signs 02/09/21 12:22 Temperature 36.1 C Pulse Rate 113 H Respiratory Rate 21 H Blood Pressure 154/73 H O2 Sat by Pulse Oximetry 93 - EKG EKG #1 EKG: NSR - tachycardia rate 118 EKG read: Reviewed by me - X-Ray X-Ray #1 X-Ray: chest Interpretation: Reviewed by me X-ray Comments: IMPRESSION: 1. BILATERAL PATCHY INFILTRATES, WHICH WOULD BE CONSISTENT WITH COVID INFECTION Electronically signed by Edy Jeter M.D.. - CT/Ultrasound CT/Ultrasound Narrative: IMPRESSION: 1. NO DEFINABLE PULMONARY EMBOLUS. 2. MILD FATTY INFILTRATION WITHIN THE LIVER. 3. POOR INSPIRATION. 4. DIFFUSE BILATERAL PATCHY INFILTRATES Electronically signed by Edy Jeter M.D.. - Progress/Reassessment Chief Complaint: Upper Respiratory Symptoms Progress:: Improved Departure Clinical Impression: Pneumonia due to COVID-19 virus, Hypoxia - Departure Disposition: Still a patient Condition: Stable
[2021-02-09 13:26] LABS: ALT 52 U/L (19-67); AST 32 U/L (0-48); Albumin * 3.4 gm/dl (3.4-5.0); Alkaline Phosphatase * 57 U/L (50-170); Anion Gap 14.5 mmol/L (6.8-13.8); BUN/Creatinine Ratio 11.9 (9.0-21.6); Bilirubin, Total 0.4 mg/dL (0.0-1.1); Blood Urea Nitrogen 10 mg/dL (3-23); Ca. Corrected For Albumin 8.7 mg/dL (8.4-10.2); Calcium * 8.5 mg/dL (7.9-10.9); Carbon Dioxide 26.8 mmol/L (24-32.6); Chloride 99 mmol/L (97-106); Glucose * 215 mg/dL (70-110); Potassium 4.3 mmol/L (3.4-4.6); Sodium 136 mmol/L (132-142); Total Protein 7.6 gm/dL (6.2-8.2); Troponin I Less than 0.017 ng/mL (0.00-0.10)
[2021-02-09] MEDS ORDERED: DEXAMETHASONE SODIUM PHOSP/PF 10 MG/ML VIAL IV ONE (13:46)
[2021-02-09 14:13] LABS: Urine Bilirubin Negative (NEGATIVE); Urine Blood Negative /ul (NEGATIVE); Urine Ketone Negative (NEGATIVE); Urine Nitrite Negative (NEGATIVE); Urine Protein Negative (NEGATIVE); Urine Specific Gravity 1.015 SP.GR. (1.005-1.010); Urine Urobilinogen Normal (NORMAL)
[2021-02-09 14:22] LABS: Urine Appearance Cloudy (CLEAR); Urine Bacteria 2+; Urine Color Yellow; Urine RBC None Seen /hpf (0-5)
[2021-02-09] MEDS ORDERED: REMDESIVIR 200 MG in NORMAL SALINE 210 ML IV ONE (17:18)
--- NOTE | 2021-02-09 17:22 | HP ---
Chief Complaint - Chief Complaint Date of Service: 02/09/21 Time of Service: 16:40 Chief Complaint: shortness of breath History of Present Illness: Chris Ceron is a 35-year-old white female, patient of KISHORE Carroll, in [facility] with past medical history significant for diabetes mellitus type 2, morbid obesity who was admitted on 02/09/2021 because of increasing shortness of breath. 6 days prior to admission the patient started having cough with increasing shortness of breath associated with joint pains and muscle pains. Over the weekend the patient developed a fever of on 101.7 degrees Fahrenheit. On Sunday she went to the outpatient clinic in [facility] and was tested for Covid. She had gotten a pulse oximeter. Her cough was productive of yellowish phlegm yesterday and her shortness of breath was getting worse. Her pulse oximeter went down to 85% with minimal exertion and stayed around 90% at home. Today the patient was informed that her Covid test was positive and so she went to our emergency room. In the emergency room her chest x-ray showed bilateral patchy infiltrates consistent with Covid infection. Her her CBC and CMP were essentially within normal limits except for elevated random blood sugar. Her D-dimer was slightly elevated and so a CT angio gram of her chest was done which showed no evidence of pulmonary emboli embolism. It did show the bilateral patchy infiltrates, fatty liver. She was started on IV dexamethasone and was placed on 2 L nasal cannula. She was admitted for further evaluation and treatment. Medical History (Last Reviewed 02/09/21 @ 17:05 by Mayra Ewing RN) Influenza vaccination declined (Acute) Onset Date: 02/12/19 Type 2 diabetes mellitus (Acute) Continue metformin Check HbA1c today Routine Follow-Up (Acute) Pap collected today Micronor for contraception. Pt to call back when she has finished . I recommend a progesterone method since the patient is diabetic. GDM, class A2 (Acute) delivery delivered (Acute) Diabetes mellitus type II, controlled (Acute) BMI 40.0-44.9, adult (Acute) 10/09/17 Sciatica (Acute) Back pain at L4-L5 level (Acute) Sciatic leg pain (Acute) BMI 50.0-59.9, adult 04/03/17 Gestational diabetes 2012 Morbid Obesity BMI>25 05/22/13 Stress incontinence in female 05/22/13 Urge incontinence 05/22/13 Urinary urgency 08/19/14 Anemia 2012-w/ Anxiety Asthma As a child. No hospitalizations. Small bowel problem Some type of bowel disorder as a child/pt unsure exactly what. States it caused her to have difficulty with bowel movements. No surgical intervention. 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 Absent: Weakness, Chills EENTM: Present: Other - Loss of smell. Absent: Blurred Vision Respiratory: Present: Cough, Shortness of Breath. Absent: Orthopnea, Wheezing Cardiac: Absent: Chest Pain, Edema, Palpitations Abdominal: Absent: Nausea, Vomiting, Abdominal Pain Genitourinary: Absent: Urgency, Frequency Musculoskeletal: Absent: Joint Pain, Back Pain Neurological: Absent: Headache Skin: Absent: Lesions, Rash Endocrine: Absent: Intolerance to Cold, Intolerance to Heat Misc: All systems neg except as marked Immunizations: IMMUNIZATION HX Immunizations Up to Date Yes History of Influenza Vaccine No Allergies/Adverse Reactions: Allergies Allergy/AdvReac Type Severity Reaction Status Date / Time No Known Allergies Allergy Verified 02/09/21 16:38 Home Medications: HOME MEDICATIONS bupropion HCl 100 mg tablet,12 hr sustained-release 100 mg PO DAILY #90 ea 09/15/20 [Last Taken Unknown] lisinopril 5 mg tablet 5 mg PO DAILY #90 tab 12/08/20 [Last Taken Unknown] Albuterol Sulfate [Proair Respiclick] 1 puff IH Q4H PRN 02/09/21 [Last Taken Unknown] Celecoxib [Celebrex] 100 mg PO BID 02/09/21 [Last Taken Unknown] Gabapentin [Neurontin] 300 mg PO TID 02/09/21 [Last Taken Unknown] Nystatin 5 ml PO QID 02/09/21 [Last Taken Unknown] glipiZIDE [Glipizide] 5 mg PO BID 02/09/21 [Last Taken Unknown] metFORMIN HCL [Glucophage Xr] 1,000 mg PO BID 02/09/21 [Last Taken Unknown] Exam - Exam Vital Signs: Vital Signs - Last Taken Temp 37.9 C 02/09/21 16:30 Pulse 105 H 02/09/21 16:30 Resp 20 02/09/21 16:30 BP 125/78 02/09/21 16:30 Pulse Ox 97 02/09/21 16:30 Constitutional: Present: Alert, Oriented x3, Cooperative, Morbidly obese ENT Exam: Present: hearing grossly normal, nasal congestion Eye Exam: bilateral eye: normal inspection, PERRL, EOMI Neck: Present: supple. Absent: lymphadenopathy (R), lymphadenopathy (L) Respiratory: Present: decreased breath sounds, No rales, No wheezing Cardiovascular/Chest: Present: regular rate, rhythm, no JVD, no murmur Extremity: Present: no calf tenderness. Absent: lower extremity edema Diagnostic Studies: Abnormal Lab Results 02/09/21 02/09/21 02/09/21 Range/Units 12:57 12:57 12:57 Hgb 12.4 L (12.5-16.0) gm/dL MCH 24.6 L (27-31) pg MCHC 30.6 L (32-36) g/dl RDW 14.8 H (11.5-14.0) % Lymphocytes # 1.48 L (1.5-3.5) k/mm3 D-Dimer 0.51 H (0.19-0.49) ugFEU/mL Anion Gap 14.5 H (6.8-13.8) mmol/L Random Glucose 215 H (70-110) mg/dL Procalcitonin (0.05-0.50) ng/mL Urine Glucose (UA) (NEGATIVE) mg/dL Ur Leukocyte Esterase (NEGATIVE) /ul Urine WBC (0-5) /hpf Ur Epithelial Cells (0-5) /hpf Urine Bacteria (NONE) 02/09/21 02/09/21 Range/Units 12:57 13:48 Hgb (12.5-16.0) gm/dL MCH (27-31) pg MCHC (32-36) g/dl RDW (11.5-14.0) % Lymphocytes # (1.5-3.5) k/mm3 D-Dimer (0.19-0.49) ugFEU/mL Anion Gap (6.8-13.8) mmol/L Random Glucose (70-110) mg/dL Procalcitonin Less than 0.05 L (0.05-0.50) ng/mL Urine Glucose (UA) 100 H (NEGATIVE) mg/dL Ur Leukocyte Esterase 75 H (NEGATIVE) /ul Urine WBC 5-10 H (0-5) /hpf Ur Epithelial Cells >25 H (0-5) /hpf Urine Bacteria 2+ H (NONE) Laboratory Results WBC 6.0 K/mm3 (4.0-10.5) 02/09/21 12:57 RBC 5.04 M/mm3 (4.2-5.4) 02/09/21 12:57 Hgb 12.4 gm/dL (12.5-16.0) L 02/09/21 12:57 Hct 40.5 % (37.0-47.0) 02/09/21 12:57 MCV 80.4 fl (78-100) 02/09/21 12:57 MCH 24.6 pg (27-31) L 02/09/21 12:57 MCHC 30.6 g/dl (32-36) L 02/09/21 12:57 RDW 14.8 % (11.5-14.0) H 02/09/21 12:57 Plt Count 268 K/mm3 (150-450) 02/09/21 12:57 MPV 9.1 fl (8-12.5) 02/09/21 12:57 Immature Gran % (Auto) 0.30 % (0.001-0.429) 02/09/21 12:57 Immature Gran # (Auto) 0.02 K/mm3 (0.000-0.0310) 02/09/21 12:57 Neutrophils % 68.5 % (42-75.0) 02/09/21 12:57 Lymphocytes % 24.5 % (20-51) 02/09/21 12:57 Monocytes % 6.5 % (0.0-9) 02/09/21 12:57 Eosinophils % 0.2 % (0.0-3.0) 02/09/21 12:57 Basophils % 0.0 % (0.0-1.0) 02/09/21 12:57 Nucleated RBC % 0.0 k/mm3 (0-1) 02/09/21 12:57 Neutrophils # 4.1 K/mm3 (1.3-6.0) 02/09/21 12:57 Lymphocytes # 1.48 k/mm3 (1.5-3.5) L 02/09/21 12:57 Monocytes # 0.4 k/mm3 (0.0-1.0) 02/09/21 12:57 Eosinophils # 0.0 k/mm3 (0.0-0.7) 02/09/21 12:57 Absolute Basophils 0.0 k/mm3 (0.0-0.1) 02/09/21 12:57 D-Dimer 0.51 ugFEU/mL (0.19-0.49) H 02/09/21 12:57 Sodium 136 mmol/L (132-142) 02/09/21 12:57 Plasma Sodium 138 mmol/L (130-142) 02/09/21 12:57 Potassium 4.3 mmol/L (3.4-4.6) 02/09/21 12:57 Chloride 99 mmol/L (97-106) 02/09/21 12:57 Carbon Dioxide 26.8 mmol/L (24-32.6) 02/09/21 12:57 Anion Gap 14.5 mmol/L (6.8-13.8) H 02/09/21 12:57 BUN 10 mg/dL (3-23) 02/09/21 12:57 Creatinine 0.84 mg/dL (0.4-1.4) 02/09/21 12:57 Est GFR (Non-Af Amer) 82 mL/min (60-130) D 02/09/21 12:57 BUN/Creatinine Ratio 11.9 (9.0-21.6) 02/09/21 12:57 Random Glucose 215 mg/dL (70-110) H 02/09/21 12:57 Lactic Acid, Venous 1.6 mmol/L (0.4-2.0) 02/09/21 12:57 Calcium 8.5 mg/dL (7.9-10.9) 02/09/21 12:57 Calcium Adj for Albumin 8.7 mg/dL (8.4-10.2) 02/09/21 12:57 Total Bilirubin 0.4 mg/dL (0.0-1.1) 02/09/21 12:57 AST 32 U/L (0-48) 02/09/21 12:57 ALT 52 U/L (19-67) 02/09/21 12:57 Alkaline Phosphatase 57 U/L (50-170) 02/09/21 12:57 Troponin I Less than 0.017 ng/mL (0.00-0.10) 02/09/21 12:57 Total Protein 7.6 gm/dL (6.2-8.2) 02/09/21 12:57 Albumin 3.4 gm/dl (3.4-5.0) 02/09/21 12:57 Procalcitonin Less than 0.05 ng/mL (0.05-0.50) L 02/09/21 12:57 Urine Color Yellow 02/09/21 13:48 Urine Appearance Cloudy (CLEAR) 02/09/21 13:48 Urine pH 5.0 pH (5.0-7.0) 02/09/21 13:48 Ur Specific Swisher 1.015 SP.GR. (1.005-1.010) 02/09/21 13:48 Urine Protein Negative mg/dL (NEGATIVE) 02/09/21 13:48 Urine Glucose (UA) 100 mg/dL (NEGATIVE) H 02/09/21 13:48 Urine Ketones Negative mg/dL (NEGATIVE) 02/09/21 13:48 Urine Blood Negative /ul (NEGATIVE) 02/09/21 13:48 Urine Nitrate Negative (NEGATIVE) 02/09/21 13:48 Urine Bilirubin Negative mg/dl (NEGATIVE) 02/09/21 13:48 Urine Urobilinogen Normal EU/dl (NORMAL) 02/09/21 13:48 Ur Leukocyte Esterase 75 /ul (NEGATIVE) H 02/09/21 13:48 Urine RBC None seen /hpf (0-5) 02/09/21 13:48 Urine WBC 5-10 /hpf (0-5) H 02/09/21 13:48 Ur Epithelial Cells >25 /hpf (0-5) H 02/09/21 13:48 Urine Bacteria 2+ (NONE) H 02/09/21 13:48 Urine Culture Comments Culture to follow 02/09/21 13:48 Urine HCG, Qual Negative (NEGATIVE) 02/09/21 12:46 Assessment/Plan - Narrative Narrative: Chris is a 35-year-old white female who was admitted today for shortness of breath and hypoxia. Her chest x-ray and CT scan showed patchy bilateral infiltrate consistent with Covid. Her Covid testing was positive. She got one IV dose of dexamethasone and started on 2 L of nasal cannula at the emergency room. She also got albuterol treatment over there. She is on low-flow nasal cannula and we will continue her IV dexamethasone and start remdesivir after discussing the pros and cons. We will start her on DVT prophylaxis. We will not start her on antibiotics for bacterial community-acquired pneumonia as she does not have focal consolidation, and her pro calcitonin is low. Her white blood cell count/neutrophils is also normal. We will continue on her home medications. Since she is already on an LIS I at home we will continue with it. She may sleep on a prone position if she is comfortable with it. - Assessment/Plan (1) Acute respiratory failure with hypoxemia Problem: Acute (2) Pneumonia due to 2019-nCoV Problem: Acute (3) Type 2 diabetes mellitus Problem: Acute Qualifiers:
[2021-02-09 17:38] LABS: Prothrombin Time (Patient) 10.5 Seconds (9.1-10.7)
[2021-02-09 17:39] LABS: INR 1.01 INR (0.92-1.08)
[2021-02-09] MEDS: ENOXAPARIN SODIUM 40 MG/0.4 ML SYRG SC SCH (18:41)
[2021-02-09] MEDS: ACETAMINOPHEN 325 MG TABLET PO PRN (19:13)
[2021-02-09] MEDS: NYSTATIN ORAL.SUSP PO SCH (20:42)
[2021-02-09] MEDS: INSULIN GLARGINE,HUM.REC.ANLOG 100 UNITS/ML VIAL SC SCH (20:45)
[2021-02-09] MEDS ORDERED: INSULIN LISPRO 100 UNITS/ML VIAL SC STA (21:01)
[2021-02-10 06:39] LABS: Albumin * 3.1 gm/dl (3.4-5.0); Bilirubin, Total 0.3 mg/dL (0.0-1.1); Calcium * 8.6 mg/dL (7.9-10.9); Carbon Dioxide 27.1 mmol/L (24-32.6); Potassium 4.1 mmol/L (3.4-4.6); Total Protein 7.2 gm/dL (6.2-8.2)
[2021-02-10] MEDS: INSULIN LISPRO 100 UNITS/ML VIAL SC SCH ×3 (06:48→17:24)
[2021-02-10] MEDS ORDERED: REMDESIVIR 100 MG in NORMAL SALINE 230 ML IV SCH ×2 (09:00→18:30)
[2021-02-10] MEDS ORDERED: DEXAMETHASONE SODIUM PHOSPHATE 4 MG/ML VIAL IV SCH (09:00)
--- NOTE | 2021-02-10 09:31 | PN ---
Subjective - Date and Time Seen Date: 02/10/21 Time: 09:26 Subjective Narrative: a little bit beter than yesterday. Tmax was 38.1 around 6 pm last night. still coughing. Objective - Review of Systems Generalized/Overall Review: Reports: Fever. Denies: Weakness, Chills EENTM: Reports: Nose Congestion. Denies: Blurred Vision Respiratory: Reports: Cough, Shortness of Breath. Denies: Orthopnea, Wheezing Cardiac: Denies: Chest Pain, Edema, Palpitations Abdominal: Denies: Nausea, Vomiting, Abdominal Pain Genitourinary Symptoms: Denies: Urgency, Frequency Musculoskeletal Complaints: Denies: Joint Pain, Back Pain Neurological: Denies: Anxiety, Depressed Skin: Denies: Lesions, Rash Endocrine: Denies: Intolerance to Cold, Intolerance to Heat Misc: All systems neg except as marked - Vitals Vitals: Last Vital Signs Temp 37.0 C 02/10/21 06:00 Pulse 92 02/10/21 06:00 Resp 18 02/10/21 06:00 BP 116/70 02/10/21 06:00 Pulse Ox 94 02/10/21 06:00 - Abnormal Lab Findings Abnormal Lab Findings: Abnormal Lab Results 02/09/21 02/09/21 02/09/21 Range/Units 12:57 12:57 12:57 Hgb 12.4 L (12.5-16.0) gm/dL MCH 24.6 L (27-31) pg MCHC 30.6 L (32-36) g/dl RDW 14.8 H (11.5-14.0) % Lymphocytes # 1.48 L (1.5-3.5) k/mm3 D-Dimer 0.51 H (0.19-0.49) ugFEU/mL Total CO2 (19.0-24.0) mmol/L Anion Gap 14.5 H (6.8-13.8) mmol/L Random Glucose 215 H (70-110) mg/dL C-Reactive Prot, Quant (0.0-0.9) mg/dL Albumin (3.4-5.0) gm/dl Procalcitonin (0.05-0.50) ng/mL Urine Glucose (UA) (NEGATIVE) mg/dL Ur Leukocyte Esterase (NEGATIVE) /ul Urine WBC (0-5) /hpf Ur Epithelial Cells (0-5) /hpf Urine Bacteria (NONE) 02/09/21 02/09/21 02/09/21 Range/Units 12:57 12:57 13:48 Hgb (12.5-16.0) gm/dL MCH (27-31) pg MCHC (32-36) g/dl RDW (11.5-14.0) % Lymphocytes # (1.5-3.5) k/mm3 D-Dimer (0.19-0.49) ugFEU/mL Total CO2 (19.0-24.0) mmol/L Anion Gap (6.8-13.8) mmol/L Random Glucose (70-110) mg/dL C-Reactive Prot, Quant 3.0 H (0.0-0.9) mg/dL Albumin (3.4-5.0) gm/dl Procalcitonin Less than 0.05 L (0.05-0.50) ng/mL Urine Glucose (UA) 100 H (NEGATIVE) mg/dL Ur Leukocyte Esterase 75 H (NEGATIVE) /ul Urine WBC 5-10 H (0-5) /hpf Ur Epithelial Cells >25 H (0-5) /hpf Urine Bacteria 2+ H (NONE) 02/09/21 02/10/21 Range/Units 21:38 06:24 Hgb (12.5-16.0) gm/dL MCH (27-31) pg MCHC (32-36) g/dl RDW (11.5-14.0) % Lymphocytes # (1.5-3.5) k/mm3 D-Dimer (0.19-0.49) ugFEU/mL Total CO2 26.1 H (19.0-24.0) mmol/L Anion Gap (6.8-13.8) mmol/L Random Glucose 199 H (70-110) mg/dL C-Reactive Prot, Quant (0.0-0.9) mg/dL Albumin 3.1 L (3.4-5.0) gm/dl Procalcitonin (0.05-0.50) ng/mL Urine Glucose (UA) (NEGATIVE) mg/dL Ur Leukocyte Esterase (NEGATIVE) /ul Urine WBC (0-5) /hpf Ur Epithelial Cells (0-5) /hpf Urine Bacteria (NONE) - Exam Constitutional: Present: Alert, Oriented x3, Cooperative, Morbidly obese ENT Exam: Present: hearing grossly normal Neck: Present: supple. Absent: lymphadenopathy (R), lymphadenopathy (L) Respiratory: Present: decreased breath sounds, No rales, No wheezing Cardiovascular/Chest: Present: regular rate, rhythm, no JVD, no murmur Abdomen: Present: Normal bowel sounds, soft, nontender, obese Extremity: Present: no calf tenderness. Absent: lower extremity edema Assessment/Plan Plan Narrative: Chris was admitted for Covid Pneumonia with Hypoxia. She is saturating better. She is not on NC this morning . We will continue with her Dexamethasone and remdesivir. UCS showed NG. will increase her SSI to moderate protocol. - Problems/Diagnosis (1) Acute respiratory failure with hypoxemia Problem: Acute (2) Pneumonia due to 2019-nCoV Problem: Acute (3) Type 2 diabetes mellitus Problem: Chronic Qualifiers: Diabetes mellitus [facility] insulin use: with [facility] use
[2021-02-10] MEDS: GABAPENTIN 300 MG CAPSULE PO SCH ×3 (09:48→17:23)
[2021-02-10] MEDS: LISINOPRIL 5 MG TABLET PO SCH (09:48)
[2021-02-10] MEDS: BUPROPION HCL 100 MG PO SCH (09:50)
[2021-02-10] MEDS: NYSTATIN ORAL.SUSP PO SCH ×4 (09:52→21:29)
[2021-02-10] MEDS ORDERED: ONDANSETRON HCL/PF 2 MG/ML VIAL IV PRN (10:14)
[2021-02-10] MEDS: ENOXAPARIN SODIUM 40 MG/0.4 ML SYRG SC SCH (17:22)
[2021-02-10] MEDS: INSULIN GLARGINE,HUM.REC.ANLOG 100 UNITS/ML VIAL SC SCH (21:28)
[2021-02-11] MEDS: ACETAMINOPHEN 325 MG TABLET PO PRN (05:44)
[2021-02-11 07:37] LABS: Albumin * 2.9 gm/dl (3.4-5.0); BUN/Creatinine Ratio 25.4 (9.0-21.6); Bilirubin, Total 0.4 mg/dL (0.0-1.1); Ca. Corrected For Albumin 8.9 mg/dL (8.4-10.2); Calcium * 8.3 mg/dL (7.9-10.9); Carbon Dioxide 27.5 mmol/L (24-32.6); Total Protein 6.6 gm/dL (6.2-8.2)
[2021-02-11] MEDS: INSULIN LISPRO 100 UNITS/ML VIAL SC SCH ×2 (07:45→12:05)
[2021-02-11] MEDS ORDERED: DEXAMETHASONE SODIUM PHOSP/PF 10 MG/ML VIAL IV SCH (09:00)
--- NOTE | 2021-02-11 09:02 | PN ---
Progess Note - Interim Date: 02/11/21 Time: 09:00 Narrative: 02/11/21 09:00 Had several episodes of low O2 overnight as per patient and machine kept on beeping disturbing her sleep. Ma be discharged with home O2. We will have a walk test.
[2021-02-11] MEDS: LISINOPRIL 5 MG TABLET PO SCH (09:16)
[2021-02-11] MEDS: GABAPENTIN 300 MG CAPSULE PO SCH (09:16)
[2021-02-11] MEDS: NYSTATIN ORAL.SUSP PO SCH (09:18)
[2021-02-11] MEDS: BUPROPION HCL 100 MG PO SCH (09:29)
--- NOTE | 2021-02-11 10:39 | DS ---
(1) Acute respiratory failure with hypoxemia Problem: Acute (2) Pneumonia due to 2019-nCoV Problem: Acute (3) Type 2 diabetes mellitus Problem: Chronic Qualifiers: Diabetes mellitus terminal [facility] insulin use: with terminal [facility] use Date of Discharge:: 02/11/21 Hospital Course: Chris Ceron is a 35-year-old white female, patient of [facility], in [facility] with past medical history significant for diabetes mellitus type 2, morbid obesity who was admitted on 02/09/2021 because of increasing shortness of breath. 6 days prior to admission the patient started having cough with increasing shortness of breath associated with joint pains and muscle pains. Over the weekend the patient developed a fever of on 101.7 degrees Fahrenheit. On Sunday she went to the outpatient clinic in [facility] and was tested for Covid. She had gotten a pulse oximeter. Her cough was productive of yellowish phlegm yesterday and her shortness of breath was getting worse. Her pulse oximeter went down to 85% with minimal exertion and stayed around 90% at home. Today the patient was informed that her Covid test was positive and so she went to our emergency room. In the emergency room her chest x-ray showed bilateral patchy infiltrates consistent with Covid infection. Her her CBC and CMP were essentially within normal limits except for elevated random blood sugar. Her D-dimer was slightly elevated and so a CT angio gram of her chest was done which showed no evidence of pulmonary emboli embolism. It did show the bilateral patchy infiltrates, fatty liver. She was started on IV dexamethasone and was placed on 2 L nasal cannula. We continue her on IV dexamethasone , O2 and gave IV remdesavir. She improved clinically but does get episodes of low O2 saturation at RA with exertion. She is wanting to go home. We will discharge her on home O2 at 1-2 L to keep O2 saturation above 93 % PRN. She will need to be on isolation at least 10 days from her onset of s/sx or afebrile for 24-48 hours w/o acetominophen. Procedures Performed: none Results and Findings: Pending Mircobiology Results 02/09/21 15:05 Blood Blood Culture - Preliminary NO GROWTH 24 HOURS 02/09/21 14:30 Blood Blood Culture - Preliminary NO GROWTH 24 HOURS Lab Pending Results 02/09/21 12:46: Urine HCG, Qual Negative 02/09/21 12:57: WBC 6.0, RBC 5.04, Hgb 12.4 L, Hct 40.5, MCV 80.4, MCH 24.6 L, MCHC 30.6 L, RDW 14.8 H, Plt Count 268, MPV 9.1, Immature Gran % (Auto) 0.30, Immature Gran # (Auto) 0.02, Neutrophils % 68.5, Lymphocytes % 24.5, Monocytes % 6.5, Eosinophils % 0.2, Basophils % 0.0, Nucleated RBC % 0.0, Neutrophils # 4.1, Lymphocytes # 1.48 L, Monocytes # 0.4, Eosinophils # 0.0, Absolute Basophils 0.0 02/09/21 12:57: Sodium 136, Plasma Sodium 138, Potassium 4.3, Chloride 99, Carbon Dioxide 26.8, Anion Gap 14.5 H, BUN 10, Creatinine 0.84, Est GFR (Non-Af Amer) 82 D, BUN/Creatinine Ratio 11.9, Random Glucose 215 H, Calcium 8.5, Calcium Adj for Albumin 8.7, Total Bilirubin 0.4, AST 32, ALT 52, Alkaline Phosphatase 57, Troponin I Less than 0.017, Total Protein 7.6, Albumin 3.4 02/09/21 12:57: D-Dimer 0.51 H 02/09/21 12:57: Procalcitonin Less than 0.05 L 02/09/21 12:57: Lactic Acid, Venous 1.6 02/09/21 12:57: PT 10.5, INR (Anticoag Therapy) 1.01 02/09/21 12:57: Ferritin 69, Creatine Kinase 61, C-Reactive Prot, Quant 3.0 H 02/09/21 13:48: Urine Color Yellow, Urine Appearance Cloudy, Urine pH 5.0, Ur Specific [place] 1.015, Urine Protein Negative, Urine Glucose (UA) 100 H, Urine Ketones Negative, Urine Blood Negative, Urine Nitrate Negative, Urine Bilirubin Negative, Urine Urobilinogen Normal, Ur Leukocyte Esterase 75 H, Urine RBC None seen, Urine WBC 5-10 H, Ur Epithelial Cells >25 H, Urine Bacteria 2+ H, Urine Culture Comments Culture to follow 02/09/21 21:38: pCO2 43.2, pO2 88.9, HCO3 24.8, Total CO2 26.1 H, Base Excess - 0.5, ABG pH 7.38, ABG O2 Sat (Measured) 96.6 02/10/21 06:24: Sodium 139, Plasma Sodium 141, Potassium 4.1, Chloride 105, Carbon Dioxide 27.1, Anion Gap 11.0, BUN 14, Creatinine 0.70, Est GFR (Non-Af Amer) 102 D, BUN/Creatinine Ratio 20.0, Random Glucose 199 H, Calcium 8.6, Calcium Adj for Albumin 9.0, Total Bilirubin 0.3, AST 25, ALT 47, Alkaline Phosphatase 54, Total Protein 7.2, Albumin 3.1 L 02/11/21 06:20: Sodium Pending, Plasma Sodium Pending, Potassium Pending, Chloride Pending, Carbon Dioxide 27.5, Anion Gap Pending, BUN 18, Creatinine 0.71, Est GFR (Non-Af Amer) 100, BUN/Creatinine Ratio 25.4 H, Random Glucose 185 H, Calcium 8.3, Calcium Adj for Albumin 8.9, Total Bilirubin 0.4, AST 25, ALT 39, Alkaline Phosphatase 51, Total Protein 6.6, Albumin 2.9 L Discharge Location: Home Disposition: Home self-care Condition: Stable Discharge Activity: Activity as tolerated Discharge Diet: Consistent carbs Additional Patient Instructions (free text): PCP follow up in thru audio or video telehealth in 1 week. Prescriptions (Any new or edited meds): Dexamethasone 6 mg PO DAILY #7 tab Transmission Status: Pending to [facility] guaiFENesin [Mucinex] 600 mg PO BID #14 tablet.sa Transmission Status: Pending to [facility] Acetaminophen [Tylenol] 650 mg PO Q6H PRN #30 tab PRN Reason: Pain/Fever Transmission Status: Pending to [facility] Complete Home Medications List: Complete Home Medication List: bupropion HCl 100 mg tablet,12 hr sustained-release 100 mg PO DAILY #90 ea 09/15/20 lisinopril 5 mg tablet 5 mg PO DAILY #90 tab 12/08/20 Albuterol Sulfate [Proair Respiclick] 1 puff IH Q4H PRN 02/09/21 Celecoxib [Celebrex] 100 mg PO BID 02/09/21 Gabapentin [Neurontin] 300 mg PO TID 02/09/21 Nystatin 5 ml PO QID 02/09/21 glipiZIDE [Glipizide] 5 mg PO BID 02/09/21 metFORMIN HCL [Glucophage Xr] 1,000 mg PO BID 02/09/21 Acetaminophen [Tylenol] 650 mg PO Q6H PRN #30 tab 02/11/21 Dexamethasone 6 mg PO DAILY #7 tab 02/11/21 guaiFENesin [Mucinex] 600 mg PO BID #14 tablet.sa 02/11/21
[2021-02-11 12:38] LABS: Anion Gap 10.6 mmol/L (6.8-13.8); Potassium 4.1 mmol/L (3.4-4.6)
[2021-02-11 14:34] VITALS: BP 122/78
== END 2021-02-11 14:12 | disposition home or self-care (01) | DRG 177 ==
LOC: ER 12:21 → MS 14:10
PROVIDERS: ADMIT Internal Medicine; ATTEND Internal Medicine
DX: E66.01 Morbid (severe) obesity due to excess calories; Z68.43 Body mass index [BMI] 50.0-59.9, adult; E11.9 Type 2 diabetes mellitus without complications; J96.01 Acute respiratory failure with hypoxia; U07.1 COVID-19; Z79.4 Long term (current) use of insulin; J12.82 Pneumonia due to coronavirus disease 2019